=== PATIENT | female | born 1985 | race African-American/Black ===

== ENCOUNTER 2020-08-28 02:04 | Inpatient (IN) | payer MEDICAID ==
[~2020-08-28] VITALS: Ht 161.3 cm; Wt 103.4 kg
[2020-08-28] MEDS ORDERED: MAGNESIUM 4 G PREMIX 100 ML IV ONE (03:15)
[2020-08-28] MEDS: TERBUTALINE SULFATE 1MG/ML VIAL SUBCUT PRN ×3 (03:30→07:54)
[2020-08-28] MEDS ORDERED: BETAMETHASONE ACET/BETAMET 30 MG/5 ML VIAL IM ONE (03:30)
[2020-08-28] MEDS: LACTATED RINGERS 1,000 ML IV SCH ×3 (03:33→14:49)
[2020-08-28] MEDS ORDERED: TERBUTALINE SULFATE 1MG/ML VIAL ONE (03:36)
[2020-08-28] MEDS: MAGNESIUM 20 G PREMIX (L & D) 500 ML IV SCH ×3 (04:24→23:51)
[2020-08-28] MEDS ORDERED: HYDR275A SQ (04:38)
[2020-08-28] MEDS ORDERED: PREN-135 PO (04:38)
[2020-08-28] MEDS: CEFAZOLIN 2,000 MG in DEXT 5% WATER 100 ML IV SCH ×3 (04:59→17:02)
[2020-08-28 05:13] LABS: BASOPHILS % 0.7 % (0.0-2.0); EOSINOPHILS % 2.8 % (0.0-5.0); HEMATOCRIT. 39.3 % (36.0-48.0); HEMOGLOBIN. 13.2 g/dL (12.0-16.0); LYMPHOCYTES % 19.9 % (20.0-50.0); MEAN CORPUSCULAR HEMOGLOBIN 30.4 pg (28.0-32.0); MEAN CORPUSCULAR VOLUME 90.9 fL (81.0-99.0); MEAN PLATELET VOLUME 8.8 fl (7.4-10.4); NEUTROPHILS % 69.6 % (40.0-76.0); PLATELET 212 x1000/uL (130-400); RED BLOOD CELL COUNT 4.33 mill/uL (4.2-5.4); RED CELL DISTRIBUTION WIDTH 12.4 % (11.6-14.6)
[2020-08-28 05:15] LABS: CLARITY URINE CLEAR (CLEAR); COLOR URINE YELLOW (YELLOW); KETONES URINE 3+ (NEGATIVE); LEUKOCYTE ESTERASE URINE NEGATIVE (NEGATIVE); NITRITE URINE NEGATIVE (NEGATIVE); OCCULT BLOOD URINE NEGATIVE (NEGATIVE); PH URINE 6.5 (4.5-8.0); PROTEIN URINE NEGATIVE (NEGATIVE); SPECIFIC GRAVITY URINE 1.016 (1.005-1.030); UROBILINOGEN URINE 0.2 E.U./dL (0.2-1.0)
[2020-08-28 23:51] VITALS: BP 114/60
[2020-08-29] MEDS: CEFAZOLIN 2,000 MG in DEXT 5% WATER 100 ML IV SCH ×2 (01:05→08:59)
[2020-08-29] MEDS ORDERED: INDOMETHACIN 25MG CAPSULE PO PRN (04:00)
[2020-08-29] MEDS ORDERED: BETAMETHASONE ACET/BETAMET 30 MG/5 ML VIAL IM NR (04:15)
[2020-08-29] MEDS: LACTATED RINGERS 1,000 ML IV SCH (04:51)
== END 2020-08-29 12:50 | disposition home or self-care (01) | DRG 566 ==
LOC: OBSVTOIN 02:04 → 8 EST LDRP 02:04
PROVIDERS: ADMIT Obstetrics & Gynecology Obstetrics; ATTEND Obstetrics & Gynecology Obstetrics
DX: O34.13 Maternal care for benign tumor of corpus uteri, third trimester (principal); D25.9 Leiomyoma of uterus, unspecified; O62.1 Secondary uterine inertia; Z3A.29 29 weeks gestation of pregnancy
CPT/HCPCS: 36415; 76805; 81003; 83735; 85025; 87070; 96360; 96361; 96365; 96366; 96372; 99281; G0378; J0690; J0702; J3105; J3475; J7060; A4315

== ENCOUNTER 2020-10-28 12:24 | Observation (INO) | payer MEDICAID ==
[~2020-10-28 12:24] MED LIST: PREN-135 PO
== END 2020-10-28 16:30 | disposition home or self-care (01) ==
LOC: 8 EST LDRP 12:24
PROVIDERS: ADMIT Obstetrics & Gynecology Obstetrics; ATTEND Obstetrics & Gynecology Obstetrics
DX: O34.33 Maternal care for cervical incompetence, third trimester (principal); O99.891 Other specified diseases and conditions complicating pregnancy; M54.9 Dorsalgia, unspecified; Z79.899 Other long term (current) drug therapy; Z3A.38 38 weeks gestation of pregnancy
CPT/HCPCS: 59025; 76815; G0378; 99281

== ENCOUNTER 2020-11-03 18:05 | Inpatient (IN) | payer MEDICAID, OTHER ==
[~2020-11-03] VITALS: Ht 160 cm; Wt 106.6 kg
[2020-11-03] MEDS ORDERED: BUTORPHANOL TARTRATE 2 MG/ML VIAL IV PRN (21:30)
[2020-11-03] MEDS ORDERED: DEXT 5%/LR + PITOCIN 20UNITS/L 1,000 ML IV SCH (21:30)
[2020-11-03] MEDS ORDERED: LIDOCAINE HCL 1% 20ML VIAL (Pyxis) INJ INFIL SCH (21:30)
[2020-11-03] MEDS ORDERED: METHYLERGONOVINE MALEATE 0.2 MG/ML IM PRN (21:30)
[2020-11-03] MEDS ORDERED: NALOXONE HCL 0.4 MG/ML 1ML VIAL IM PRN (21:30)
[2020-11-03] MEDS ORDERED: MISOPROSTOL 100MCG TABLET VG SCH (21:30)
[2020-11-03] MEDS ORDERED: CARBOPROST TROMETHAMINE 250 MCG/ML AMPUL IM PRN (21:30)
[2020-11-03] MEDS ORDERED: MINERAL OIL 30ML BOTTLE TOP ONE (21:30)
[2020-11-03 21:57] LABS: CLARITY URINE CLEAR (CLEAR); COLOR URINE YELLOW (YELLOW); KETONES URINE 1+ (NEGATIVE); LEUKOCYTE ESTERASE URINE NEGATIVE (NEGATIVE); NITRITE URINE NEGATIVE (NEGATIVE); OCCULT BLOOD URINE NEGATIVE (NEGATIVE); PROTEIN URINE NEGATIVE (NEGATIVE); SPECIFIC GRAVITY URINE 1.018 (1.005-1.030); UROBILINOGEN URINE 0.2 E.U./dL (0.2-1.0)
[2020-11-03 21:59] LABS: BASOPHILS % 0.5 % (0.0-2.0); EOSINOPHILS % 2.2 % (0.0-5.0); HEMOGLOBIN. 12.6 g/dL (12.0-16.0); MEAN CORPUSCULAR HEMOGLOBIN 30.6 pg (28.0-32.0); MEAN CORPUSCULAR VOLUME 90.1 fL (81.0-99.0); MEAN PLATELET VOLUME 8.4 fl (7.4-10.4); MONOCYTES % 9.7 % (2.0-8.0); NEUTROPHILS % 62.6 % (40.0-76.0); PLATELET 198 x1000/uL (130-400); RED CELL DISTRIBUTION WIDTH 14.1 % (11.6-14.6)
[2020-11-03] MEDS ORDERED: DINOPROSTONE 10MG VAGINAL INSERT VG SCH (22:00)
[2020-11-03 22:09] LABS: INR 0.9; PARTIAL THROMBOPLASTIN TIME 33.2 sec (23.4-31.0)
[2020-11-03 22:35] LABS: *AMPHETAMINES SCREEN URINE NEGATIVE (NEGATIVE); *BARBITURATES SCREEN URINE NEGATIVE (NEGATIVE); *BENZODIAZEPINES SCREEN URINE NEGATIVE (NEGATIVE); *COCAINE SCREEN URINE NEGATIVE (NEGATIVE)
[2020-11-03 22:36] LABS: CANNABINOID URINE SCREEN NEGATIVE (NEGATIVE); METHADONE URINE SCREEN NEGATIVE (NEGATIVE); OPIATES URINE SCREEN NEGATIVE (NEGATIVE); PHENCYCLIDINE URINE SCREEN NEGATIVE (NEGATIVE)
[2020-11-03] MEDS: LACTATED RINGERS 1,000 ML IV SCH ×2 (22:42→23:17)
[2020-11-03 22:56] LABS: HEPATITIS B SURFACE ANTIGEN NEGATIVE
[2020-11-04] MEDS: MISOPROSTOL 100MCG TABLET VG SCH ×2 (15:04→20:25)
[2020-11-04] MEDS: LACTATED RINGERS 1,000 ML IV SCH (15:06)
[2020-11-05] MEDS: MISOPROSTOL 100MCG TABLET VG SCH (00:27)
[2020-11-05] MEDS ORDERED: MINERAL OIL 30ML BOTTLE PO SCH (07:45)
[2020-11-05] MEDS ORDERED: MAGNESIUM 20 G PREMIX (L & D) 500 ML IV SCH (13:15)
[2020-11-05] MEDS ORDERED: LABETALOL HCL 5MG/ML VIAL 20ML IV PRN ×3 (13:15)
[2020-11-05] MEDS ORDERED: FENTANYL CITRATE/PF 50MCG/ML 2ML VIAL ONE (16:05)
[2020-11-05] MEDS ORDERED: BUPIVACAINE HCL/PF 0.25% (2.5MG/ML) 10ML ONE (16:05)
[2020-11-05] MEDS ORDERED: ROPIVACAINE HCL/PF EPIDURAL 200 ML EPI ONE (16:05)
[2020-11-05] MEDS ORDERED: LIDOCAINE HCL 1% 20ML VIAL (Pyxis) INJ INFIL SCH (20:15)
[2020-11-05] MEDS ORDERED: CARBOPROST TROMETHAMINE 250 MCG/ML AMPUL IM NR ×2 (20:18→20:27)
[2020-11-05] MEDS ORDERED: METHYLERGONOVINE MALEATE 0.2 MG/ML IM PRN (21:15)
[2020-11-05] MEDS ORDERED: ACETAMINOPHEN 500MG TABLET PO PRN (21:15)
[2020-11-05] MEDS ORDERED: IBUPROFEN 800MG TABLET PO PRN (21:15)
[2020-11-05] MEDS ORDERED: DEXT 5%/LR + PITOCIN 20UNITS/L 1,000 ML IV SCH (21:30)
[2020-11-05 22:55] VITALS: BP 145/72
[2020-11-05 23:25] VITALS: BP 119/72
[2020-11-05] MEDS ORDERED: ONDANSETRON HCL 4MG/2ML INJ IV PRN (23:30)
[2020-11-05] MEDS: LANOLIN OINT 7GM TUBE TOP PRN (23:37)
[2020-11-06 04:30] VITALS: BP 107/53
[2020-11-06 06:14] LABS: HEMATOCRIT. 38.9 % (36.0-48.0); HEMOGLOBIN. 13.1 g/dL (12.0-16.0); MEAN CORPUSCULAR HEMOGLOBIN 30.1 pg (28.0-32.0); MEAN CORPUSCULAR VOLUME 89.6 fL (81.0-99.0); MEAN PLATELET VOLUME 9.1 fl (7.4-10.4); PLATELET 162 x1000/uL (130-400); RED BLOOD CELL COUNT 4.34 mill/uL (4.2-5.4)
[2020-11-06 08:00] VITALS: BP 90/49
[2020-11-06] MEDS: PRENATAL VIT/FE FUMARATE/FA TABLET PO SCH (09:07)
[2020-11-06 12:00] VITALS: BP 94/47
[2020-11-06 16:00] VITALS: BP 98/58
[2020-11-06 19:30] VITALS: BP 108/61
[2020-11-06 20:29] LABS: PLATELET ESTIMATE NORMAL
[2020-11-06] MEDS: LANOLIN OINT 7GM TUBE TOP PRN (20:47)
[2020-11-06] MEDS ORDERED: DOCUSATE SODIUM 100MG CAPSULE PO SCH (21:00)
[2020-11-07 04:00] VITALS: BP 122/73
[2020-11-07 07:52] VITALS: BP 104/63
[2020-11-07] MEDS: PRENATAL VIT/FE FUMARATE/FA TABLET PO SCH (09:00)
== END 2020-11-07 12:45 | disposition home or self-care (01) | DRG 560 ==
LOC: OBSVTOIN 18:05 → 8 EST LDRP 18:05 → 8EST 11-05 22:16
PROVIDERS: ADMIT Obstetrics & Gynecology Obstetrics; ATTEND Obstetrics & Gynecology Obstetrics
PROC: 10H07YZ Insertion of Other Device into Products of Conception, Via Natural or Artificial Opening (ICD-10-PCS; 2020-11-04)
PROC: 3E0P7VZ Introduction of Hormone into Female Reproductive, Via Natural or Artificial Opening (ICD-10-PCS; 2020-11-04)
PROC: 10E0XZZ Delivery of Products of Conception, External Approach (ICD-10-PCS; principal; 2020-11-05)
PROC: 3E0DXGC Introduction of Other Therapeutic Substance into Mouth and Pharynx, External Approach (ICD-10-PCS; 2020-11-05)
DX: O34.13 Maternal care for benign tumor of corpus uteri, third trimester (principal); Z37.0 Single live birth; O41.03X0 Oligohydramnios, third trimester, not applicable or unspecified; O72.1 Other immediate postpartum hemorrhage; D25.9 Leiomyoma of uterus, unspecified; O69.81X0 Labor and delivery complicated by cord around neck, without compression, not applicable or unspecified; Z3A.38 38 weeks gestation of pregnancy; Z20.822 Contact with and (suspected) exposure to COVID-19
CPT/HCPCS: 36415; 76805; 76815; 76818; 80305; 81003; 85025; 86592; 86703; 86762; 86850; 86900; 86920; 87340; 87426; 99281; G0378; J2405; J2590; J2795; J3010; J3490